=== PATIENT | female | born 1985 | race African-American/Black ===

== ENCOUNTER 2020-10-22 09:50 | Inpatient (IN) ==
[2020-10-22] MEDS: LACTATED RINGERS 1,000 ML IV SCH ×2 (11:18→13:29)
[2020-10-22] MEDS ORDERED: ceFAZolin 3,000 MG in SYRINGE 1 EACH IV ONE (11:29)
[2020-10-22] MEDS ORDERED: FAMOTIDINE 20 MG/2 ML VIAL IV ONE (11:29)
[2020-10-22] MEDS ORDERED: CITRIC ACID/SODIUM CITRATE 30 ML UDCUP PO ONE (11:29)
[2020-10-22 11:43] LABS: Basophils % 0.4 % (0.0-0.8); Eosinophils # 0.5 10*3/uL (0.0-0.87); Hematocrit 38.2 VOL% (35.7-47.0); Hemoglobin 11.9 GM/DL (12.0-16.0); Immature Granulocytes % 0.7 %; Immature Granulocytes Absolute 0.06 #; Lymphocytes # 1.6 10*3/uL (1.4-4.0); Lymphocytes % 17.6 % (21.3-54.2); Mean Corpuscular HGB Conc 31.2 GM/DL (32-36); Mean Corpuscular Volume 85.5 FL (87-102); Monocytes % 8.2 % (1.7-12.7); Neutrophils % 68.1 % (38.7-73.9); Platelet Count 318 T/CUMM (130-400); Red Blood Count 4.47 MC/CUMM (3.8-5.5); Red Cell Distribution Width 14.1 % (9.3-17.3)
[2020-10-22 11:59] LABS: INR 0.9; PT Patient Result 9.8 SECS (10.5-12.0); Partial Thromboplastin Time 26.3 SECS (23.9-33.8)
[2020-10-22 12:04] LABS: Bilirubin,Direct < 0.100 MG/DL (0.0-0.20); Uric Acid 4.2 MG/DL (2.6-6.0)
[2020-10-22 13:11] LABS: Albumin 2.4 G/DL (3.4-5.0); Bilirubin,Total 0.4 MG/DL (0.20-1.00); Calcium 8.8 MG/DL (8.5-10.1); Osmolality,Calculated 268.8 MOS/KG (273-304); Potassium 4.2 MMOL/L (3.5-5.1); Total Protein 7.2 G/DL (6.4-8.2)
[2020-10-22] MEDS ORDERED: OXYTOCIN 10 UNIT/ML VIAL IM ONE (13:58)
[2020-10-22] MEDS ORDERED: OXYTOCIN/LR 30 UNIT/1,000 ML BAG IV ONE (13:58)
[2020-10-22] MEDS ORDERED: miSOPROStoL 200 MCG TABLET ONE (14:27)
[2020-10-22] MEDS ORDERED: OXYTOCIN/LR 20 UNIT/1,000 ML BAG IV ONE ×2 (14:27→16:22)
[2020-10-22] MEDS ORDERED: TRANEXAMIC ACID 1,000 MG/10 ML VIAL ONE (14:27)
[2020-10-22] MEDS ORDERED: CARBOPROST TROMETHAMINE 250 MCG/ML AMP IM ONE (14:28)
[2020-10-22] MEDS ORDERED: METHYLERGONOVINE 0.2 MG/1 ML AMP ONE (14:28)
[2020-10-22] MEDS ORDERED: SODIUM CHLORIDE 0.9% 0 ML IV ONE (14:29)
[2020-10-22] MEDS ORDERED: BUPIVACAINE SPINAL 0.75% 2 ML AMP SPINAL ONE (14:35)
[2020-10-22] MEDS ORDERED: ONDANSETRON 4 MG/2 ML VIAL ONE (14:38)
[2020-10-22] MEDS ORDERED: ACETAMINOPHEN INJ 1,000 MG/100 ML VIAL IV ONE (14:44)
[2020-10-22] MEDS ORDERED: ePHEDrine 50 MG/ML VIAL ONE (15:22)
[2020-10-22] MEDS ORDERED: PHENYLEPHRINE 1 MG/10 ML SYRINGE IV ONE (15:40)
[2020-10-22] MEDS ORDERED: LACTATED RINGERS 1,000 ML IV ONE (15:41)
[2020-10-22] MEDS ORDERED: SODIUM CHLORIDE 0.9% 100 ML IV ONE (15:43)
[2020-10-22 15:49] LABS: Cord Arterial Blood HCO3 23.4 MMOL/L
[2020-10-22 15:50] LABS: Bilirubin,Urine Negative (Negative); Blood, Urine Negative (Negative); Glucose,Urine (UA) Negative (Negative); Ketones,Urine 5 mg/dL (Negative); Mucus,Urine Occasional /LPF (Occasional); Nitrite,Urine Negative (Negative); Protein,Urine Negative; Squamous Epithelial Cell,Urine Occasional /HPF (0-10); Urine Appearance CLEAR (Clear); Urine Color Yellow (Yellow); Urine Specific Gravity 1.011 (1.001-1.035); Urine Urobilinogen < 2.0 EU/DL (0.2-1.0)
[2020-10-22 15:51] LABS: Cord Venous Blood HCO3 24.4 MMOL/L; Cord Venous Blood PCO2 55.7 MMHG; Cord Venous Blood PO2 30.9
[2020-10-22 16:13] LABS: Protein/Creatinine Ratio,Urine 0.2 RATIO
[2020-10-22 16:22] LABS: Barbiturates Screen,Urine Negative (Negative); Benzodiazepines Screen,Urine Negative (Negative); Cannabinoid Screen,Urine Negative (Negative); Opiate Screen,Urine Negative (Negative); Phencyclidine Screen,Urine Negative (Negative)
[2020-10-22] MEDS ORDERED: ACETAMINOPHEN 325 MG TABLET PO PRN (16:22)
[2020-10-22] MEDS ORDERED: SIMETHICONE CHEW 80 MG TABLET PO PRN (16:22)
[2020-10-22] MEDS ORDERED: ONDANSETRON 4 MG/2 ML VIAL IV PRN (16:22)
[2020-10-22] MEDS ORDERED: RHO(D) IMMUNE GLOBULIN 300 MCG SYRINGE IM ONE (16:22)
[2020-10-22] MEDS ORDERED: LACTATED RINGERS 1,000 ML IV SCH (16:30)
[2020-10-22] MEDS ORDERED: HYDROmorphone 2 MG/1 ML VIAL IV PRN (17:57)
[2020-10-22] MEDS ORDERED: ALBUTEROL 1.25 MG/3 ML NEB RESP TX PRN (20:03)
[2020-10-22] MEDS ORDERED: diphenhydrAMINE CAP 25 MG CAPSULE PO PRN (20:40)
[2020-10-22] MEDS ORDERED: ACETAMINOPHEN 500 MG TABLET PO SCH (22:00)
[2020-10-23] MEDS: IBUPROFEN 800 MG TABLET PO PRN ×3 (00:35→22:17)
[2020-10-23 05:58] LABS: Basophils % 0.4 % (0.0-0.8); Eosinophils # 0.3 10*3/uL (0.0-0.87); Eosinophils % 3.1 % (0.00-10.9); Hematocrit 32.5 VOL% (35.7-47.0); Hemoglobin 10.3 GM/DL (12.0-16.0); Immature Granulocytes % 0.8 %; Immature Granulocytes Absolute 0.08 #; Lymphocytes # 1.6 10*3/uL (1.4-4.0); Lymphocytes % 15.3 % (21.3-54.2); Mean Corpuscular HGB Conc 31.7 GM/DL (32-36); Mean Corpuscular Volume 85.3 FL (87-102); Mean Platelet Volume 10.6 FL (9.6-12.0); Monocytes % 7.8 % (1.7-12.7); Neutrophils % 72.6 % (38.7-73.9); Platelet Count 244 T/CUMM (130-400); Red Blood Count 3.81 MC/CUMM (3.8-5.5); White Blood Count 10.1 T/CUMM (4-12)
[2020-10-23] MEDS: DOCUSATE SODIUM 100 MG CAPSULE PO SCH ×3 (06:50→20:05)
[2020-10-23] MEDS: MULTIVITAMIN (PRENATAL) TABLET PO SCH (08:47)
[2020-10-23] MEDS: MAGNESIUM HYDROXIDE SUSP 30 ML UDCUP PO PRN ×2 (08:48→20:05)
[2020-10-23] MEDS: METOCLOPRAMIDE 10 MG TABLET PO SCH ×2 (15:36→23:50)
[2020-10-24] MEDS: DOCUSATE SODIUM 100 MG CAPSULE PO SCH (08:04)
[2020-10-24] MEDS: METOCLOPRAMIDE 10 MG TABLET PO SCH (08:04)
[2020-10-24] MEDS: MULTIVITAMIN (PRENATAL) TABLET PO SCH (08:04)
[2020-10-24] MEDS: IBUPROFEN 800 MG TABLET PO PRN (08:05)
[2020-10-24 09:37] VITALS: BP 131/90
[2020-10-24] MEDS ORDERED: DIPH/TET/ACEL PERT BOOSTER VACCINE 0.5 ML VIAL IM ONE (11:54)
== END 2020-10-24 14:15 | disposition home or self-care (01) | DRG 539 ==
LOC: N.LD 09:50 → N.OB 21:15
PROVIDERS: ADMIT Obstetrics & Gynecology; ATTEND Obstetrics & Gynecology